=== PATIENT | female | born 1950 | race Caucasian/White ===

== ENCOUNTER 2018-04-03 12:05 | Outpatient (CLI) | payer MEDICARE, BC ==
--- NOTE | 2018-04-03 13:05 | CT Report ---
Reason: DIZZINESS Procedure Date: 04/03/2018 Accession Number: [id number] / [id number] Procedure: CT - Head W/O CPT Code: FULL RESULT: EXAM: CT HEAD EXAM DATE: 04/03/2018 12:52 PM. CLINICAL HISTORY: DIZZINESS. COMPARISON: None. TECHNIQUE: Multiaxial CT images were obtained from the foramen magnum to the vertex. Reformats: Sagittal and coronal. IV contrast: None. In accordance with CT protocol optimization, one or more of the following dose reduction techniques were utilized for this exam: automated exposure control, adjustment of mA and/or KV based on patient size, or use of iterative reconstructive technique. FINDINGS: Parenchyma: No intraparenchymal hemorrhage. No evidence of mass, midline shift, or CT findings of infarction. Beckham-white differentiation is distinct. Extraaxial Spaces: Normal for age. No subdural or epidural collections identified. Ventricles: Normal in size and position. Sinuses and Orbits: Imaged paranasal sinuses, orbits, and mastoids show no significant abnormality. Bones: No evidence of fracture or calvarial defect. There is incidentally noted prominent bilateral symmetric hyperostosis frontalis. Other: None. IMPRESSION: Normal head CT. No intracranial hemorrhage, mass-effect, CT evidence of acute infarct, or other acute abnormality. RADIA The call report notification system was initiated by Dr. Hima Long at 13:01 hrs on 04/03/18. The above findings were discussed with Zoey Aranda by Dr. Hima Long at 13:03 hrs on 04/03/18.
== END 2018-04-03 12:06 | disposition home or self-care (01) ==
LOC: DI 12:05
PROVIDERS: ATTEND Nurse Practitioner Family
DX: R42 Dizziness and giddiness (principal)
CPT/HCPCS: 70450

== ENCOUNTER 2018-04-20 11:17 | Outpatient (CLI) | payer MEDICARE, BC | END 2018-04-20 11:18 | disposition home or self-care (01) | LOC: DI 11:17 | PROVIDERS: ATTEND Registered Nurse | DX: Z12.31 Encounter for screening mammogram for malignant neoplasm of breast (principal) | CPT/HCPCS: 77067 ==

== ENCOUNTER 2018-04-20 12:09 | Outpatient (CLI) | payer MEDICARE, BC ==
--- NOTE | 2018-04-20 13:41 | XRAY Report ---
Reason: LLE PAIN,PARESTNESIA INTERMITTANT FOOT DROP Procedure Date: 04/20/2018 Accession Number: [id number] / [id number] Procedure: XR - Lumbar Spine 2 View CPT Code: FULL RESULT: EXAM: LUMBOSACRAL SPINE RADIOGRAPHY EXAM DATE: 04/20/2018 12:51 PM. CLINICAL HISTORY: Left lower extremity pain, paresthesia, intermittent foot drop; no known injury. COMPARISONS: None. TECHNIQUE: 2 views. FINDINGS: Alignment: Normal. No spondylolisthesis or scoliosis. Bones: Five nhb-pvz-wrwnhru lumbar vertebral bodies are present. No fractures or bone lesions. Disks: Normal. Disk heights are maintained. Facets: There is mild to moderate facet arthropathy which is most pronounced at L5. Sacroiliac Joints: Unremarkable. Soft Tissues: Normal. The visualized bowel gas pattern is normal. IMPRESSION: L5 facet arthropathy. RADIA
== END 2018-04-20 12:10 | disposition home or self-care (01) ==
LOC: DI 12:09
PROVIDERS: ATTEND Registered Nurse
DX: M47.9 Spondylosis, unspecified (principal)
CPT/HCPCS: 72100

== ENCOUNTER 2018-04-20 12:11 | Outpatient (CLI) | payer MEDICARE, BC | END 2018-04-20 12:12 | disposition home or self-care (01) | LOC: DI 12:11 | PROVIDERS: ATTEND Nurse Practitioner Family | DX: R01.1 Cardiac murmur, unspecified (principal); R42 Dizziness and giddiness; M54.2 Cervicalgia; I51.7 Cardiomegaly; M21.379 Foot drop, unspecified foot; M47.9 Spondylosis, unspecified | CPT/HCPCS: 72100; 93306 ==

== ENCOUNTER 2018-05-08 13:49 | Outpatient (CLI) | payer MEDICARE, BC ==
--- NOTE | 2018-05-08 16:56 | Mammography Report ---
Reason: ABN MAMMO = RT SPEC VIEWS Procedure Date: 05/08/2018 Accession Number: [id number] / [id number] Procedure: RYAN - Diag Special Views Dig RT CPT Code: FULL RESULT: EXAM: Diag Special Views Dig RT, Breast Unilateral Limited DATE: 05/08/2018 2:14 PM CLINICAL HISTORY: Follow-up abnormal mammogram ADDITIONAL VIEWS RIGHT BREAST: TECHNIQUE: Additional magnification, true lateral, and tomographic images are obtained of the right breast. COMPARISON: 04/20/2018 FINDINGS: Small nodular density in the right breast laterally approximately 11 cm from the nipple persists on additional views. RIGHT BREAST ULTRASOUND: Technique: Real-time scanning by the petroleum inspector was saved static images reviewed. FINDINGS: Corresponding to the nodular density in the lateral right breast is a 6 x 4 x 4 mm benign-appearing lymph node. IMPRESSION: Benign findings RECOMMENDATION: Follow-up bilateral screening mammography in one year. BIRADS CATEGORY 2: Benign findings STANDARD QUALIFYING STATEMENTS: 1. This examination was reviewed with the aid of Computer-Aided Detection (CAD). 2. A negative or benign imaging report should not delay biopsy if clinically suspicious findings are present. Consider surgical consultation if warrented. More than 5% of cancers are not identified by imaging. 3. Dense breasts may obscure an underlying neoplasm.
== END 2018-05-08 13:50 | disposition home or self-care (01) ==
LOC: DI 13:49
PROVIDERS: ATTEND Registered Nurse
DX: R92.8 Other abnormal and inconclusive findings on diagnostic imaging of breast (principal)
CPT/HCPCS: 76642

== ENCOUNTER 2018-05-25 10:12 | Outpatient (CLI) | payer MEDICARE, BC ==
--- NOTE | 2018-05-25 13:14 | XRAY Report ---
Reason: neck pain and dizziness Procedure Date: 05/25/2018 Accession Number: [id number] / [id number] Procedure: XR - Cervical Spine 2 View CPT Code: FULL RESULT: EXAM: CERVICAL SPINE RADIOGRAPHY EXAM DATE: 05/25/2018 10:22 AM. CLINICAL HISTORY: Neck pain and dizziness. COMPARISONS: None. TECHNIQUE: 3 views. FINDINGS: Alignment: Approximately 2 mm anterolisthesis of C6 on C7, likely degenerative in nature. No scoliosis. Bones: The cervical vertebral bodies and posterior elements are well visualized from the skull base through C7-T1. No fractures or bone lesions. Disks: Multilevel loss of disk space height which is most pronounced at C6-C7. Facets: Mild multilevel facet arthropathy. Soft Tissues: Normal. No prevertebral soft tissue swelling. The visualized lung apices are clear. IMPRESSION: Degenerative disease as described. RADIA
== END 2018-05-25 10:13 | disposition home or self-care (01) ==
LOC: DI 10:12
PROVIDERS: ATTEND Registered Nurse
DX: M50.323 Other cervical disc degeneration at C6-C7 level (principal); R42 Dizziness and giddiness
CPT/HCPCS: 72040

== ENCOUNTER 2019-06-25 10:06 | Outpatient (CLI) | payer MEDICARE, BC ==
--- NOTE | 2019-06-26 15:18 | XRAY Report ---
Reason: PLEURODYNIA Procedure Date: 06/25/2019 Accession Number: [id number] / [id number] Procedure: XR - Ribs w/PA Chest RT CPT Code: Final Report FULL RESULT: EXAM: RIGHT RIB RADIOGRAPHY EXAM DATE: 06/25/2019 11:31 AM. CLINICAL HISTORY: Right rib pain after ground-level fall. COMPARISON: None. TECHNIQUE: 1 view of the chest and 2 views of the ribs. FINDINGS: Bones: No acute fracture seen. Lungs: No focal opacities. No pneumothorax. No pleural effusions. Mediastinum: Within exam limitations, cardiomediastinal silhouette is unremarkable. Other: None. IMPRESSION: 1. No acute abnormality seen in the chest or ribs. RADIA
--- NOTE | 2019-06-27 05:42 | CT Report ---
Reason: INJURY OF HEAD Procedure Date: 06/25/2019 Accession Number: [id number] / [id number] Procedure: CT - HEAD WO CPT Code: Final Report FULL RESULT: EXAM: CT HEAD EXAM DATE: 06/25/2019 10:22 AM. CLINICAL HISTORY: INJURY OF HEAD. COMPARISON: HEAD W/O 04/03/2018 12:47 PM. TECHNIQUE: Multiaxial CT images were obtained from the foramen magnum to the vertex. Reformats: Sagittal and coronal. IV contrast: None. In accordance with CT protocol optimization, one or more of the following dose reduction techniques were utilized for this exam: automated exposure control, adjustment of mA and/or KV based on patient size, or use of iterative reconstructive technique. FINDINGS: Parenchyma: No intraparenchymal hemorrhage. No evidence of mass, midline shift, or CT findings of acute infarction. Beckham-white differentiation is distinct. Extraaxial Spaces: Normal for age. No subdural or epidural collections identified. Ventricles: Normal in size and position. Sinuses and Orbits: Imaged paranasal sinuses, orbits, and mastoids show no significant abnormality. Bones: No evidence of fracture or calvarial defect. Other: None. IMPRESSION: Normal head CT. RADIA
== END 2019-06-25 10:07 | disposition home or self-care (01) ==
LOC: DI 10:06
PROVIDERS: ATTEND Nurse Practitioner Family
DX: S09.90XA Unspecified injury of head, initial encounter (principal); R07.81 Pleurodynia
CPT/HCPCS: 70450

== ENCOUNTER 2020-09-14 09:07 | Outpatient (CLI) | payer MEDICARE, BC | END 2020-09-14 09:08 | disposition home or self-care (01) | LOC: DI 09:07 | PROVIDERS: ATTEND Internal Medicine Cardiovascular Disease | DX: R00.2 Palpitations (principal) | CPT/HCPCS: 93306 ==

== ENCOUNTER 2020-10-26 10:43 | Outpatient (CLI) | payer MEDICARE, BC ==
--- NOTE | 2020-10-27 07:47 | Mammography Report ---
BILATERAL DIGITAL SCREENING MAMMOGRAM 3D/2D: 10/26/2020 CLINICAL: Routine screening. Comparison is made to exams dated: 04/08/2018 mammogram - [facility] and 01/05/2014 mammogram - [facility]. There are scattered fibroglandular elements in both breasts. There are grouped fine pleomorphic calcifications in the left breast at 1 o'clock posterior depth. T hese are increased in number of calcifications. No other significant masses, calcifications, or other findings are seen in either breast. IMPRESSION: INCOMPLETE: NEEDS ADDITIONAL IMAGING EVALUATION The grouped fine pleomorphic calcifications in the left breast are indeterminate. Mediolateral, spot magnification, and additional views are recommended. This exam was interpreted at Station ID: [id number]. NOTE: For mammograms, a report in lay terms will be sent to the patient. Approximately 15% of breast malignancies will not be visualized mammographically. In the management of a palpable breast mass, a negative mammogram must not discourage biopsy of a clinically suspicious lesion. Electronically Signed By: Sam Benjamin M.D. ddp/penrad:10/26/2020 11:28:36 ACR BI-RADS Category 0: Incomplete 3340F PARENCHYMAL PATTERN: (A) - The breast(s) demonstrate(s) scattered fibroglandular densities. BI-RADS CATEGORY: (0) - 0 RECOMMENDATION: (ADDMAM) - Recommend additional mammographic views. [id number] Immediate follow-up LATERALITY: (B)
== END 2020-10-26 10:44 | disposition home or self-care (01) ==
LOC: DI 10:43
PROVIDERS: ATTEND Registered Nurse
DX: Z12.31 Encounter for screening mammogram for malignant neoplasm of breast (principal); N64.89 Other specified disorders of breast

== ENCOUNTER 2020-11-15 10:15 | Outpatient (CLI) | payer MEDICARE, BC ==
--- NOTE | 2020-11-16 12:04 | Mammography Report ---
UNILATERAL LEFT DIGITAL DIAGNOSTIC MAMMOGRAM 3D/2D: 11/15/2020 CLINICAL: Patient returns for magnification views of microcalcifications in the left breast. Comparison is made to exams dated: 10/26/2020 mammogram, 04/20/2018 ultrasound, 04/08/2018 mammogram, ultrasound - [facility], and 01/05/2014 mammogram - [facility]. There a re scattered fibroglandular elements in left breast. There are grouped dystrophic calcifications in the left breast at 1 o'clock posterior depth. These a re slightly increased in number since 2018, but the dimentions of the group are stable. The morpholo gy is similar, slightly more coarse. No other significant masses or calcifications are seen in the breast. IMPRESSION: PROBABLY BENIGN The calcifications in the left breast are only minimally changed and probably benign. A follow-up left mammogram in 6 months is recommended to demonstrate continued stability. Findings and recommendations were conveyed to the patient at time of exam. This exam was interpreted at Station ID: [id number]. NOTE: For mammograms, a report in lay terms will be sent to the patient. Approximately 15% of breast malignancies will not be visualized mammographically. In the management of a palpable breast mass, a negative mammogram must not discourage biopsy of a clinically suspicious lesion. Electronically Signed By: Rosina dai/:11/15/2020 11:19:10 ACR BI-RADS Category 3: Probably benign 3343F PARENCHYMAL PATTERN: (A) - The breast(s) demonstrate(s) scattered fibroglandular densities. BI-RADS CATEGORY: (3) - 3 Mammogram [id number] 6 month follow-up LATERALITY: (L)
== END 2020-11-15 10:16 | disposition home or self-care (01) ==
LOC: DI 10:15
PROVIDERS: ATTEND Registered Nurse
DX: R92.2 Inconclusive mammogram (principal)

== ENCOUNTER 2021-07-11 09:42 | Outpatient (CLI) | payer MEDICARE, BC ==
--- NOTE | 2021-07-12 10:28 | Mammography Report ---
UNILATERAL LEFT DIGITAL DIAGNOSTIC MAMMOGRAM 3D/2D: 07/11/2021 CLINICAL: Patient returns for 6 month follow up on left breast for calcifications. Comparison is made to exams dated: 11/15/2020 mammogram, 10/26/2020 mammogram, 04/20/2018 ultrasound, mammogram, 04/08/2018 ultrasound - [facility], and 01/05/2014 mammogram - [facility]. There are scattered fibroglandular elements in left breast. There are stable grouped dystrophic calcifications in the left breast at 1 o'clock posterior depth. No other significant masses or calcifications are seen in the breast. IMPRESSION: PROBABLY BENIGN The stable grouped dystrophic calcifications in the left breast are consistent with a degenerating fi broadenoma and are probably benign. A follow-up mammogram in 6 months is recommended. A follow-up mammogram in 6 months is recommended to demonstrate stability. This exam was interpreted at Station ID: [id number]. NOTE: For mammograms, a report in lay terms will be sent to the patient. Approximately 15% of breast malignancies will not be visualized mammographically. In the management of a palpable breast mass, a negative mammogram must not discourage biopsy of a clinically suspicious lesion. Electronically Signed By: Wagner Arroyo M.D., jr/ish:07/11/2021 10:49:34 ACR BI-RADS Category 3: Probably benign 3343F PARENCHYMAL PATTERN: (A) - The breast(s) demonstrate(s) scattered fibroglandular densities. BI-RADS CATEGORY: (3) - 3 Mammogram [id number] 6 month follow-up LATERALITY: (B)
== END 2021-07-11 09:43 | disposition home or self-care (01) ==
LOC: DI 09:42
PROVIDERS: ATTEND Registered Nurse
DX: R92.2 Inconclusive mammogram (principal)

== ENCOUNTER 2021-09-25 11:51 | Outpatient (CLI) | payer MEDICARE, BC ==
--- NOTE | 2021-09-25 18:27 | XRAY Report ---
PROCEDURE: Knee 3 View LT INDICATIONS: PAIN IN LEFT KNEE JOINT, PELVIC PAIN TECHNIQUE: 3 views of the left knee(s) were acquired. COMPARISON: None. FINDINGS: BONES/JOINT: No acute, displaced fracture or dislocation. Small suprapatellar joint effusion. Mild tr icompartment osteophytosis. SOFT TISSUES: No significant abnormality. IMPRESSION: 1.No acute osseous abnormality. Reviewed by: Bharathi Sun MD on 09/25/2021 6:26 PM RUST Approved by: Bharathi Sun MD on 09/25/2021 6:26 PM PST Station ID: [id number]
--- NOTE | 2021-09-25 18:35 | Ultrasound Report ---
PROCEDURE: Pelvic w/Transvaginal INDICATIONS: PAIN IN LEFT KNEE JOINT, PELVIC PAIN TECHNIQUE: Real-time scanning was performed of the pelvic organs, with image documentation. Additional endovagi nal scanning was necessary due to incomplete visualization of the adnexal and endometrial structures by transabdominal scanning. COMPARISON: None. FINDINGS: UTERUS: Anteverted, heterogeneous echotexture, and measures 7.8 x 3.7 x 5.2 cm. The endometrial thickness measures 5.2 mm. 2 ovoid, echogenic lesions are seen, measuring up to 1.3 cm, likely reflecting fibroids. Hypoechoic lesions in the cervix, compatible with nabothian cysts. Ovaries: Not visualized OTHER: None. IMPRESSION: 1.Myomatous change of the uterus. Reviewed by: Bharathi Sun MD on 09/25/2021 6:34 PM PST Approved by: Bharathi Sun MD on 09/25/2021 6:34 PM PST Station ID: [id number]
== END 2021-09-25 11:52 | disposition home or self-care (01) ==
LOC: DI 11:51
PROVIDERS: ATTEND Registered Nurse
DX: M25.562 Pain in left knee (principal); R93.89 Abnormal findings on diagnostic imaging of other specified body structures

== ENCOUNTER 2022-02-08 09:49 | Outpatient (CLI) | payer MEDICARE, BC ==
[2022-02-08 11:44] LABS: BASOPHILS % (AUTO) 0.7 %; EOSINOPHILS % (AUTO) 0.7 %; HCT - HEMATOCRIT 41.9 % (37.0-47.0); HGB - HEMOGLOBIN 13.9 g/dL (12.0-16.0); LYMPHOCYTES # (AUTO) 1.2 10^3/uL (1.5-3.5); LYMPHOCYTES % (AUTO) 19.9 %; MEAN CORPUSCULAR HEMOGLOBIN 30.7 pg (27.0-31.0); MEAN CORPUSCULAR HGB CONC 33.2 g/dL (32.0-36.0); MEAN CORPUSCULAR VOLUME 92.5 fL (81.0-99.0); MEAN PLATELET VOLUME 8.8 fL (7.9-10.8); MONOCYTES # (AUTO) 0.3 10^3/uL (0.0-1.0); MONOCYTES % (AUTO) 5.7 %; NEUTROPHILS # (AUTO) 4.4 10^3/uL (1.5-6.6); NEUTROPHILS % (AUTO) 72.8 %; PLT - PLATELET COUNT 212 10^3/uL (130-450); RED BLOOD COUNT 4.53 10^6/uL (4.20-5.40); RED CELL DISTRIBUTION WIDTH 12.7 % (12.0-15.0)
[2022-02-08 11:54] LABS: CALCIUM 9.6 mg/dL (8.5-10.3); CREATININE 0.8 mg/dL (0.4-1.0); POTASSIUM 4.3 mmol/L (3.5-5.0)
[2022-02-08 12:14] LABS: THYROID STIMULATING HORMONE 1.45 uIU/mL (0.34-5.60)
--- NOTE | 2022-02-08 15:03 | DEXA Report ---
PROCEDURE: Dexa Spine and/or Hip INDICATIONS: POST MENOPAUSAL TECHNIQUE: Dual energy x-ray absorptiometry (DXA) was performed on a Vigoda System. Regions measur ed are the AP Spine, femoral neck, and if needed forearm. COMPARISON: None. FINDINGS: Lumbar Spine: Bone Mineral Density 1.285 g/cm/cm,T score 0.9, normal Left Hip: Bone Mineral Density 1.012 g/cm/cm,T score 0.0, normal Left Femoral Neck: Bone Mineral Density 0.960 g/cm/cm, T score -0.6, 0.3 IMPRESSION: Normal bone mineral density. Patients with diagnosis of osteoporosis or osteopenia should have regular bone mineral density assess ment. For those eligible for Medicare, routine testing is allowed once every 2 years. Testing frequ ency can be increased for patients who have rapidly progressing disease or for those who are receivin g medical therapy to restore bone mass. Reviewed by: Wagner Arroyo MD on 02/08/2022 3:01 PM PDT Approved by: Wagner Arroyo MD on 02/08/2022 3:01 PM PDT Station ID: [id number]
== END 2022-02-08 09:50 | disposition home or self-care (01) ==
LOC: DI 09:49
PROVIDERS: ATTEND Registered Nurse
DX: Z78.0 Asymptomatic menopausal state (principal); R42 Dizziness and giddiness
CPT/HCPCS: 36415; 80048; 84443; 85025

== ENCOUNTER 2022-02-08 09:51 | Outpatient (CLI) | payer MEDICARE, BC ==
--- NOTE | 2022-02-11 09:03 | Mammography Report ---
BILATERAL DIGITAL DIAGNOSTIC MAMMOGRAM 3D/2D: 02/08/2022 CLINICAL: Short term follow up of the left breast, due for bilateral imaging. Comparison is made to exams dated: 07/11/2021 mammogram, 11/15/2020 mammogram, 10/26/2020 mammogram, an d 04/08/2018 mammogram - [facility]. There are scattered fibroglandular elements in both breasts. There are stable grouped dystrophic calcifications in the left breast at 1 o'clock posterior depth. No other significant masses, calcifications, or other findings are seen in either breast. IMPRESSION: PROBABLY BENIGN The stable grouped dystrophic calcifications in the left breast are consistent with a degenerating fi broadenoma and are probably benign. A follow-up left mammogram in 6 months is recommended to demonst rate stability. Based on the Tyrer Cuzick model (a risk assessment model) the patients lifetime risk is 6.5% and her 10 year risk is 3.9%. According to the ACR, ACS, and NCCN guidelines, an annual breast MRI exam jessenia g with mammogram is recommended if the patients lifetime risk is 20% or greater. This exam was interpreted at Station ID: [id number]. NOTE: For mammograms, a report in lay terms will be sent to the patient. Approximately 15% of breast malignancies will not be visualized mammographically. In the management of a palpable breast mass, a negative mammogram must not discourage biopsy of a clinically suspicious lesion. Electronically Signed By: Cha Francois M.D. lk/:02/08/2022 11:21:59 ACR BI-RADS Category 3: Probably benign 3343F PARENCHYMAL PATTERN: (A) - The breast(s) demonstrate(s) scattered fibroglandular densities. BI-RADS CATEGORY: (3) - 3 Mammogram [id number] 6 month follow-up LATERALITY: (L)
== END 2022-02-08 09:52 | disposition home or self-care (01) ==
LOC: DI 09:51
PROVIDERS: ATTEND Registered Nurse
DX: R92.8 Other abnormal and inconclusive findings on diagnostic imaging of breast (principal)

== ENCOUNTER 2022-07-29 12:09 | Outpatient (CLI) | payer MEDICARE, BC ==
--- NOTE | 2022-07-30 10:49 | Mammography Report ---
UNILATERAL LEFT DIGITAL DIAGNOSTIC MAMMOGRAM 3D/2D WITH MAGNIFICATION: 07/29/2022 CLINICAL: Patient returns for a 6 month follow up of the left breast. Comparison is made to exams dated: 02/08/2022 mammogram, 07/11/2021 mammogram, 11/15/2020 mammogram, mammogram, and 04/08/2018 mammogram - [facility]. There are scattered areas of fibroglandular density in the left breast (category b / 25%-50% glandula r tissue). There are grouped dystrophic heterogeneous calcifications in the left breast at 1 o'clock posterior d epth. These are not significantly changed. Stable adjacent focal asymmetry. No other significant masses or calcifications are seen in the breast. IMPRESSION: PROBABLY BENIGN The grouped dystrophic heterogeneous calcifications in the left breast resemble a degenerating fibroa denoma and are probably benign. A follow-up bilateral mammogram to include spot magnification views of the left breast with possible left ultrasound in 6 months is recommended to demonstrate jail stability. Based on the Tyrer Cuzick model (a risk assessment model) the patients lifetime risk is 5.3% and her 10 year risk is 3.1%. According to the ACR, ACS, and NCCN guidelines, an annual breast MRI exam jessenia g with mammogram is recommended if the patients lifetime risk is 20% or greater. Findings and recommendations were conveyed to the patient during today's evaluation. This exam was interpreted at Station ID: [id number]. NOTE: For mammograms, a report in lay terms will be sent to the patient. Approximately 15% of breast malignancies will not be visualized mammographically. In the management of a palpable breast mass, a negative mammogram must not discourage biopsy of a clinically suspicious lesion. Electronically Signed By: George Joy M.D. aty/:07/29/2022 13:32:19 ACR BI-RADS Category 3: Probably benign 3343F PARENCHYMAL PATTERN: (A) - The breast(s) demonstrate(s) scattered fibroglandular densities. BI-RADS CATEGORY: (3) - 3 Mammo and [place] [id number] 6 month follow-up LATERALITY: (B)
== END 2022-07-29 12:10 | disposition home or self-care (01) ==
LOC: DI 12:09
PROVIDERS: ATTEND Registered Nurse
DX: R92.1 Mammographic calcification found on diagnostic imaging of breast (principal)

== ENCOUNTER 2022-12-05 11:41 | Outpatient (CLI) | payer MEDICARE, BC ==
--- NOTE | 2022-12-05 12:16 | XRAY Report ---
PROCEDURE: SI Joints INDICATIONS: RIGHT SI REGION PAIN SUSPECT OA TECHNIQUE: 3 views of the sacroiliac joints were acquired. COMPARISON: None FINDINGS: Bones: No bony erosions or ankylosis. No suspicious bony lesions. No fractures. Right hip joint s pace narrowing with associated osteophytosis and subchondral bone cysts. Soft tissues: Overlying bowel gas pattern is normal. No suspicious soft tissue densities. IMPRESSION: No SI joint pathology. Moderate right hip osteoarthritis. Kellgren-Jani scale of osteoarthritis: Grade 3: moderate osteo arthritis. Reviewed by: Pratik Ceron on 12/05/2022 12:15 PM PDT Approved by: Pratik Ceron on 12/05/2022 12:15 PM PDT Station ID: [id number]
--- NOTE | 2022-12-05 12:27 | XRAY Report ---
PROCEDURE: Hip w/Pelvis 2-3V RT INDICATIONS: RT HIP PX TECHNIQUE: AP pelvis with lateral view(s) of the right hip(s). COMPARISON: None. FINDINGS: Bones: No fractures or dislocations. No suspicious bony lesions. Moderate multiple osteophytes, d efinite narrowing of joint space, small pseudocystic areas with sclerotic peres and possible deformit y of bone contour. Soft tissues: No suspicious soft tissue calcifications or masses. IMPRESSION: No acute bony abnormality. Kellgren-Jani scale of osteoarthritis: Grade 3: moderate osteoarthritis. Reviewed by: Pratik Ceron on 12/05/2022 12:26 PM PDT Approved by: Pratik Ceron on 12/05/2022 12:26 PM PDT Station ID: [id number]
== END 2022-12-05 11:42 | disposition home or self-care (01) ==
LOC: DI 11:41
PROVIDERS: ATTEND Registered Nurse
DX: M16.11 Unilateral primary osteoarthritis, right hip (principal)

== ENCOUNTER 2023-01-20 10:42 | Outpatient (CLI) | payer MEDICARE, BC ==
--- NOTE | 2023-01-22 10:34 | Mammography Report ---
BILATERAL DIGITAL DIAGNOSTIC MAMMOGRAM 3D/2D WITH MAGNIFICATION: 01/20/2023 CLINICAL: Patient returns for a 6 month follow up of the left breast, due for bilateral exam. Comparison is made to exams dated: 07/29/2022 mammogram, 02/08/2022 mammogram, 07/11/2021 mammogram, mammogram, 10/26/2020 mammogram, and 04/08/2018 mammogram - [facility]. There are scattered areas of fibroglandular density in both breasts (category b / 25%-50% glandular t issue). There are grouped dystrophic heterogeneous calcifications in the left breast at 1 o'clock posterior d epth. These are not significantly changed. No other significant masses, calcifications, or other findings are seen in either breast. IMPRESSION: BENIGN The grouped dystrophic heterogeneous calcifications in the left breast resemble a degenerating fibroa denoma and are benign, stable from 10/2020. There is no mammographic evidence of malignancy. Return to annual mammogram screening schedule is rec ommended. Based on the Tyrer Cuzick model (a risk assessment model) the patients lifetime risk is 5.0% and her 10 year risk is 3.2%. According to the ACR, ACS, and NCCN guidelines, an annual breast MRI exam jessenia g with mammogram is recommended if the patients lifetime risk is 20% or greater. This exam was interpreted at Station ID: [id number]. NOTE: For mammograms, a report in lay terms will be sent to the patient. Approximately 15% of breast malignancies will not be visualized mammographically. In the management of a palpable breast mass, a negative mammogram must not discourage biopsy of a clinically suspicious lesion. Electronically Signed By: Abdifatah Mustafa M.D. lc/:01/20/2023 11:57:41 ACR BI-RADS Category 2: Benign Finding(s) 3342F PARENCHYMAL PATTERN: (A) - The breast(s) demonstrate(s) scattered fibroglandular densities. BI-RADS CATEGORY: (2) - 2 Mammogram [id number] return to screening LATERALITY: (B)
== END 2023-01-20 10:43 | disposition home or self-care (01) ==
LOC: DI 10:42
PROVIDERS: ATTEND Registered Nurse
DX: D24.2 Benign neoplasm of left breast (principal)